=== PATIENT | male | born 1955 | race Caucasian/White ===

== ENCOUNTER 2019-11-12 10:55 | Inpatient (IN) ==
[2019-11-12] MEDS ORDERED: CeFAZolin Syr 2,000MG/20 ML 2,000 MG/20 ML SYRINGE IVPB ONE (11:25)
[2019-11-12] MEDS ORDERED: Ringers Solution, Lactated 1,000 ML IVC SCH ×2 (11:30→11:45)
[2019-11-12] MEDS ORDERED: *HR* OxyCODONE Immed Rel 5 MG TABLET PO PRN (11:34)
[2019-11-12] MEDS ORDERED: Ondansetron 4 MG/2 ML VIAL IVP ONE (11:34)
[2019-11-12] MEDS ORDERED: *HR* HYDROmorphone PF 0.5 MG/0.5 ML SYRINGE IVP PRN (11:34)
[2019-11-12] MEDS ORDERED: Lidocaine -MPF 2% 2 ML VIAL ONE (11:43)
[2019-11-12] MEDS ORDERED: *HR* Succinylcholine 200 MG/10 ML VIAL IVP ONE (11:43)
[2019-11-12] MEDS ORDERED: *HR* FentaNYL (PF) 100 MCG/2 ML VIAL ONE (11:43)
[2019-11-12] MEDS ORDERED: Dexamethasone 4 MG/ML VIAL ONE (11:43)
[2019-11-12] MEDS ORDERED: Ketorolac 30 MG/ML VIAL ONE (11:43)
[2019-11-12] MEDS ORDERED: *HR* Rocuronium Bromide 50 MG/5 ML VIAL ONE (11:43)
[2019-11-12] MEDS ORDERED: Ondansetron 4 MG/2 ML VIAL ONE (11:43)
[2019-11-12] MEDS ORDERED: *HR* Propofol 200 MG/20 ML VIAL IVP ONE (11:44)
[2019-11-12] MEDS ORDERED: *HR* Midazolam HCl 2 MG/2 ML VIAL ONE (11:44)
[2019-11-12] MEDS ORDERED: Naloxone 0.4 MG/ML INJ IVP PRN (15:34)
[2019-11-12] MEDS ORDERED: *HR* HYDROcodone/Acet 5/325 mg TABLET PO PRN (15:34)
[2019-11-12] MEDS: Ipratropium/Albuterol Neb 3 ML IH SCH ×3 (15:55→23:10)
[2019-11-12] MEDS: Gabapentin 300 MG CAPSULE PO SCH ×2 (16:04→21:03)
[2019-11-12] MEDS: Famotidine 20 MG TABLET PO SCH (16:04)
[2019-11-12] MEDS: 0.9 % Sodium Chloride 1,000 ML IVC SCH (16:05)
[2019-11-12] MEDS: Ketorolac 15 MG/ML VIAL IVP SCH (18:05)
[2019-11-12] MEDS: Sennosides/Docusate Sodium TABLET PO SCH (21:03)
[2019-11-12] MEDS: *HR* Heparin 5,000 UNIT/ML VIAL SQ SCH (21:04)
[2019-11-13] MEDS: Ketorolac 15 MG/ML VIAL IVP SCH ×2 (00:44→05:04)
[2019-11-13 01:27] LABS: Hematocrit 41.9 % (37.5-50.1); Hemoglobin 14.2 g/dL (12.9-16.9); Mean Corpuscular HGB Conc 33.9 g/dL (31.6-35.5); Mean Corpuscular Volume 97.4 fL (83.0-100.0); Mean Platelet Volume 10.2 fL (9.4-12.4); Platelet Count 280 K/mcL (140-400); Red Cell Distribution Width 12.2 % (11.5-14.5); White Blood Count 9.6 K/mcL (4.3-11.1)
[2019-11-13 01:49] LABS: BUN/Creatinine Ratio 22 (6-26); Blood Urea Nitrogen 18 mg/dL (8-23); Calcium 8.5 mg/dL (8.6-10.3); Carbon Dioxide 22 mEq/L (23-29); Chloride 103 mEq/L (98-107); Glucose 119 mg/dL (70-105); Osmolality,Calculated 285 (280-300); Potassium 4.2 mEq/L (3.5-5.1); Sodium 136 mEq/L (136-145); eGFR For African Americans > 60 (> 60); eGFR For Non-African Americans > 60 (> 60)
[2019-11-13] MEDS: Ipratropium/Albuterol Neb 3 ML IH SCH ×4 (03:04→15:37)
[2019-11-13] MEDS: *HR* Heparin 5,000 UNIT/ML VIAL SQ SCH (05:05)
[2019-11-13] MEDS: 0.9 % Sodium Chloride 1,000 ML IVC SCH (05:05)
[2019-11-13 08:01] VITALS: BP 153/103
[2019-11-13] MEDS: Famotidine 20 MG TABLET PO SCH (08:06)
[2019-11-13] MEDS: Sennosides/Docusate Sodium TABLET PO SCH (08:06)
[2019-11-13] MEDS: Gabapentin 300 MG CAPSULE PO SCH (08:06)
== END 2019-11-13 15:30 | disposition home or self-care (01) | DRG 121 ==
LOC: SAMDAY 10:55 → 2NNU 15:10
PROVIDERS: ADMIT Thoracic Surgery (Cardiothoracic Vascular Surgery); ATTEND Thoracic Surgery (Cardiothoracic Vascular Surgery)